=== PATIENT | male | born 1940 | race Two or more races ===

== ENCOUNTER 2018-07-19 14:06 | Emergency (ER) | payer OTHER ==
[~2018-07-19] VITALS: Ht 167.6 cm; Wt 64.4 kg
[2018-07-19 14:16] VITALS: BP 159/60
== END 2018-07-19 16:22 | disposition home or self-care (01) ==
LOC: ER 14:11
DX: T81.89XD Other complications of procedures, not elsewhere classified, subsequent encounter (principal); M19.90 Unspecified osteoarthritis, unspecified site